=== PATIENT | male | born 1995 | race Hispanic/Latino ===

== ENCOUNTER 2022-10-23 14:15 | Emergency (ER) | payer OTHER ==
[~2022-10-23] VITALS: Ht 175.3 cm; Wt 93.0 kg
[2022-10-23 15:07] VITALS: BP 132/64
[2022-10-23] MEDS ORDERED: CYCLOBENZAPRINE HCL 10 MG TABLET PO ONE (17:30)
[2022-10-23] MEDS ORDERED: KETOROLAC 60 MG VIAL (30MG/ML) IM ONE (17:30)
[2022-10-23] MEDS ORDERED: METH-662 PO (20:05)
[2022-10-23] MEDS ORDERED: DICL75TA5 PO (20:05)
== END 2022-10-23 20:22 | disposition home or self-care (01) ==
LOC: EDH 14:15
DX: M62.830 Muscle spasm of back (principal); F41.9 Anxiety disorder, unspecified; F32.A Depression, unspecified; G89.29 Other chronic pain
CPT/HCPCS: 99284; 72131; 96372; J1885